=== PATIENT | female | born 1955 | race African-American/Black ===

== ENCOUNTER 2021-04-27 19:22 | Inpatient (IN) | payer MEDICARE, OTHER ==
[~2021-04-27] VITALS: Ht 167.6 cm; Wt 82.7 kg
[2021-04-27] MEDS ORDERED: SODIUM CHLORIDE 0.9% 1,000 ML IVB ONE (20:15)
[2021-04-27] MEDS ORDERED: HYDROmorphone HCL 2 MG/ML VL IV ONE ×3 (20:15→23:00)
[2021-04-27 21:06] LABS: Basophils # (auto) 0 10 ^3/uL (0-0.2); Eosinophils # (auto) 0 10 ^3/uL (0-0.8); Hematocrit 19.1 % (36.0-46.0); Monocytes # (auto) 0.3 10 ^3/uL (0-1.3); Neutrophils # (auto) 4.7 10 ^3/uL (1.6-8.6); Nucleated Red Blood Cells % 0.1 %; White Blood Cell 5.2 10^3/uL (4.4-10.8)
[2021-04-27 21:08] LABS: Basophils % (auto) 0.2 % (0.0-2.0); Eosinophils % (auto) 0.1 % (0.0-7.0); Lymphocytes # (auto) 0.1 10 ^3/uL (0.4-5.4); Lymphocytes % (auto) 2.8 % (10.0-50.0); Mean Corpuscular Hemoglobin 23.6 pg (28.0-32.0); Mean Corpuscular Hgb Conc. 30.7 g/dL (32.0-36.0); Mean Corpuscular Volume 76.9 fL (80.0-100.0); Neutrophils % (auto) 90.9 % (37.0-80.0); Red Blood Cells 2.49 10^6/uL (4.0-5.20)
[2021-04-27 21:12] LABS: Hemoglobin 5.9 g/dL (12.2-16.2)
[2021-04-27 21:31] LABS: Alanine Aminotransferase < 6 U/L (13-56); Anion Gap 8 (5-15); Blood Urea Nitrogen 3 mg/dL (7-18); Carbon Dioxide 10 mmol/L (21-32); Chloride 135 mmol/L (98-107); Sodium 153 mmol/L (136-145)
[2021-04-27 21:34] LABS: Alkaline Phosphatase 116 U/L (45-117); Aspartate Aminotransferase 9 U/L (15-37); Bilirubin, Total 0.2 mg/dL (0.2-1.0); Total Protein 2.2 g/dL (6.4-8.2)
[2021-04-27 21:39] LABS: GFR African American 158 mL/min; GFR Non-African American 130 mL/min
[2021-04-27 21:42] LABS: Glucose 40 mg/dL (74-106); Potassium 1.1 mmol/L (3.5-5.1)
[2021-04-27 21:43] LABS: Albumin 0.8 g/dL (3.4-5.0); Calcium < 5.0 mg/dL (8.5-10.1)
[2021-04-27 22:40] LABS: Albumin 2.8 g/dL (3.4-5.0); Calcium 9.5 mg/dL (8.5-10.1); Potassium 3.2 mmol/L (3.5-5.1)
[2021-04-27 22:44] LABS: Bilirubin, Total 0.7 mg/dL (0.2-1.0); Total Protein 7.7 g/dL (6.4-8.2)
[2021-04-27 23:42] LABS: Basophils # (auto) 0 10 ^3/uL (0-0.2); Basophils % (auto) 0.3 % (0.0-2.0); Eosinophils # (auto) 0 10 ^3/uL (0-0.8); Eosinophils % (auto) 0.2 % (0.0-7.0); Hematocrit 37.4 % (36.0-46.0); Hemoglobin 11.8 g/dL (12.2-16.2); Lymphocytes # (auto) 0.5 10 ^3/uL (0.4-5.4); Lymphocytes % (auto) 4.8 % (10.0-50.0); Mean Corpuscular Hemoglobin 23.9 pg (28.0-32.0); Mean Corpuscular Hgb Conc. 31.7 g/dL (32.0-36.0); Mean Corpuscular Volume 75.4 fL (80.0-100.0); Monocytes # (auto) 0.5 10 ^3/uL (0-1.3); Monocytes % (auto) 4.7 % (0.0-12.0); Neutrophils # (auto) 8.7 10 ^3/uL (1.6-8.6); Nucleated Red Blood Cells % 0.1 %; Red Blood Cells 4.96 10^6/uL (4.0-5.20); White Blood Cell 9.7 10^3/uL (4.4-10.8)
[2021-04-27 23:54] LABS: Red Cell Distribution Width 21.1 % (11.8-14.3)
[2021-04-28] MEDS ORDERED: METOPROLOL TARTRATE 1MG/1ML-5ML VIAL IV PRN
[2021-04-28] MEDS ORDERED: HYDROcodone-ACET 5/325MG TAB PO PRN
[2021-04-28] MEDS ORDERED: POTASSIUM CHL 20 Meq TABLET PO ONE
[2021-04-28] MEDS ORDERED: hydrALAZINE HCL 20 MG/ML VL IV PRN
[2021-04-28] MEDS ORDERED: ACETAMINOPHEN 325 MG TAB PO PRN
[2021-04-28] MEDS ORDERED: HYDROmorphone HCL 2 MG/ML VL IV PRN
[2021-04-28] MEDS ORDERED: ONDANSETRON HCL 4 MG/2 ML VIAL IV PRN
[2021-04-28] MEDS ORDERED: MORPHINE SULFATE INJECTION 2 MG/ML SYRG IV PRN (00:45)
[2021-04-28] MEDS ORDERED: NITROGLYCERIN 0.4 MG SL TAB SL PRN (00:45)
[2021-04-28] MEDS: SODIUM CHLORIDE 0.9% 1,000 ML IV SCH (02:32)
[2021-04-28] MEDS ORDERED: HYDROcodone-ACET 10/325MG TAB PO PRN ×2 (02:45→08:00)
[2021-04-28 06:09] LABS: Basophils # (auto) 0 10 ^3/uL (0-0.2); Basophils % (auto) 0.1 % (0.0-2.0); Eosinophils # (auto) 0 10 ^3/uL (0-0.8); Lymphocytes # (auto) 0.3 10 ^3/uL (0.4-5.4); Monocytes # (auto) 0.7 10 ^3/uL (0-1.3)
[2021-04-28 06:13] LABS: Hematocrit 36.4 % (36.0-46.0); Lymphocytes % (auto) 2.9 % (10.0-50.0); Mean Corpuscular Hemoglobin 23.8 pg (28.0-32.0); Mean Corpuscular Volume 72.1 fL (80.0-100.0); Monocytes % (auto) 7.2 % (0.0-12.0); Neutrophils % (auto) 89.8 % (37.0-80.0); Red Blood Cells 5.04 10^6/uL (4.0-5.20)
[2021-04-28 06:14] LABS: Red Cell Distribution Width 20.4 % (11.8-14.3)
[2021-04-28 06:18] LABS: Albumin 2.4 g/dL (3.4-5.0); Potassium 3.2 mmol/L (3.5-5.1)
[2021-04-28 06:23] LABS: BUN/Creatinine Ratio 20.5; Bilirubin, Total 0.8 mg/dL (0.2-1.0)
[2021-04-28 08:41] VITALS: BP 150/73
[2021-04-28 09:15] VITALS: BP 150/73
[2021-04-28 09:25] VITALS: BP 150/73
[2021-04-28] MEDS: FAMOTIDINE (10MG/ML) 2ML VL IV SCH (09:42)
[2021-04-28] MEDS: amLODIPine BESYLATE 5 MG TAB PO SCH (09:42)
[2021-04-28] MEDS: METOPROLOL TARTRATE 50 MG TAB PO SCH ×2 (09:42→22:40)
[2021-04-28] MEDS ORDERED: TEMA30CA PO (10:22)
[2021-04-28] MEDS ORDERED: OXYC30TA77 PO (10:22)
[2021-04-28] MEDS ORDERED: METO-289 PO (10:22)
[2021-04-28] MEDS ORDERED: AML5T PO (10:22)
[2021-04-28] MEDS: oxyCODONE ER 10 MG TAB PO PRN ×2 (13:24→21:07)
[2021-04-28 15:15] VITALS: BP 147/65
[2021-04-28 22:00] VITALS: BP 144/68
[2021-04-29] MEDS: oxyCODONE ER 10 MG TAB PO PRN ×3 (04:10→22:51)
[2021-04-29] MEDS: SODIUM CHLORIDE 0.9% 1,000 ML IV SCH (04:24)
[2021-04-29 06:21] VITALS: BP 136/60
[2021-04-29] MEDS: DOCUSATE SOD 100 MG CAP PO PRN (10:16)
[2021-04-29] MEDS: amLODIPine BESYLATE 5 MG TAB PO SCH (10:19)
[2021-04-29] MEDS: METOPROLOL TARTRATE 50 MG TAB PO SCH ×2 (10:20→22:50)
[2021-04-29] MEDS: FAMOTIDINE (10MG/ML) 2ML VL IV SCH (10:35)
[2021-04-29 22:00] VITALS: BP 113/54
[2021-04-30] MEDS: SODIUM CHLORIDE 0.9% 1,000 ML IV SCH ×2 (02:00→18:40)
[2021-04-30 05:00] VITALS: BP 115/51
[2021-04-30 08:00] VITALS: BP 111/55
[2021-04-30] MEDS: FAMOTIDINE (10MG/ML) 2ML VL IV SCH ×2 (10:00→10:25)
[2021-04-30] MEDS: amLODIPine BESYLATE 5 MG TAB PO SCH (10:25)
[2021-04-30] MEDS: METOPROLOL TARTRATE 50 MG TAB PO SCH ×2 (10:26→21:40)
[2021-04-30] MEDS: oxyCODONE ER 10 MG TAB PO PRN ×2 (10:33→21:41)
[2021-04-30 12:00] VITALS: BP 106/50
[2021-04-30 16:00] VITALS: BP 122/58
[2021-04-30] MEDS: ALBUTEROL SULF 2.5 MG/0.5ML(0.5%) NEB SOLN NEB PRN (21:47)
[2021-04-30 22:00] VITALS: BP 108/58
[2021-05-01 07:27] VITALS: BP 112/60
[2021-05-01 09:00] VITALS: BP 118/59
[2021-05-01] MEDS: oxyCODONE ER 10 MG TAB PO PRN ×2 (09:52→23:30)
[2021-05-01] MEDS: METOPROLOL TARTRATE 50 MG TAB PO SCH ×2 (09:56→23:30)
[2021-05-01] MEDS: amLODIPine BESYLATE 5 MG TAB PO SCH (09:56)
[2021-05-01] MEDS: FAMOTIDINE (10MG/ML) 2ML VL IV SCH (10:00)
[2021-05-01 13:00] VITALS: BP 116/58
[2021-05-01 17:00] VITALS: BP 121/63
[2021-05-01] MEDS: ALBUTEROL SULF 2.5 MG/0.5ML(0.5%) NEB SOLN NEB PRN (19:53)
[2021-05-01 22:00] VITALS: BP 116/62
[2021-05-02 05:00] VITALS: BP 137/62
[2021-05-02] MEDS: oxyCODONE ER 10 MG TAB PO PRN ×2 (05:57→22:24)
[2021-05-02 09:00] VITALS: BP 122/51
[2021-05-02] MEDS: FAMOTIDINE (10MG/ML) 2ML VL IV SCH (10:00)
[2021-05-02] MEDS: METOPROLOL TARTRATE 50 MG TAB PO SCH ×2 (10:00→22:24)
[2021-05-02] MEDS: amLODIPine BESYLATE 5 MG TAB PO SCH (12:10)
[2021-05-02 13:00] VITALS: BP 109/65
[2021-05-02 14:15] VITALS: BP 126/64
[2021-05-02 17:00] VITALS: BP 131/65
[2021-05-02 22:00] VITALS: BP 147/75
[2021-05-02] MEDS: DOCUSATE SOD 100 MG CAP PO PRN (22:24)
[2021-05-03] MEDS: SODIUM CHLORIDE 0.9% 1,000 ML IV SCH (02:10)
[2021-05-03] MEDS: oxyCODONE ER 10 MG TAB PO PRN ×2 (04:28→16:12)
[2021-05-03 05:00] VITALS: BP 139/72
[2021-05-03 09:00] VITALS: BP 138/69
[2021-05-03] MEDS: amLODIPine BESYLATE 5 MG TAB PO SCH (11:12)
[2021-05-03] MEDS: METOPROLOL TARTRATE 50 MG TAB PO SCH (11:12)
[2021-05-03] MEDS: FAMOTIDINE (10MG/ML) 2ML VL IV SCH (11:13)
== END 2021-05-03 16:14 | disposition hospice, home (50) | DRG 947 ==
LOC: ER 19:22 → EDBD 19:22 → TELE 04-28 00:34 → TELE-WESTW 04-28 08:44
PROVIDERS: ADMIT Nurse Practitioner Family; ATTEND Family Medicine
DX: G89.3 Neoplasm related pain (acute) (chronic) (principal); E43 Unspecified severe protein-calorie malnutrition; C79.51 Secondary malignant neoplasm of bone; M48.56XA Collapsed vertebra, not elsewhere classified, lumbar region, initial encounter for fracture; C34.90 Malignant neoplasm of unspecified part of unspecified bronchus or lung; E87.6 Hypokalemia; D69.6 Thrombocytopenia, unspecified; D63.8 Anemia in other chronic diseases classified elsewhere; E88.09 Other disorders of plasma-protein metabolism, not elsewhere classified; Z96.641 Presence of right artificial hip joint; Z20.822 Contact with and (suspected) exposure to COVID-19; I10 Essential (primary) hypertension; Z91.19 Patient's noncompliance with other medical treatment and regimen; Z68.29 Body mass index [BMI] 29.0-29.9, adult
CPT/HCPCS: 36415; 71045; 72131; 72170; 74176; 80053; 82962; 85025; 86850; 86900; 86901; 87426; 93005; 94640; 96361; 96374; 96376; G0378; J3490